=== PATIENT | female | born 1945 | race Caucasian/White ===

== ENCOUNTER 2016-11-06 15:46 | Emergency (ER) | payer MEDICARE, BC ==
[2016-11-06] MEDS ORDERED: SODIUM CHLORIDE 0.9% 500 ML IV ONE (17:52)
[2016-11-06] MEDS ORDERED: DILTIAZEM 50 MG/10 ML VIAL IV ONE (17:52)
== END 2016-11-06 19:27 | disposition home or self-care (01) ==
LOC: ER 15:46
DX: I48.0 Paroxysmal atrial fibrillation (principal); I49.9 Cardiac arrhythmia, unspecified; E03.9 Hypothyroidism, unspecified; I10 Essential (primary) hypertension; Z79.01 Long term (current) use of anticoagulants; Z79.899 Other long term (current) drug therapy
CPT/HCPCS: 36415; 71010; 80048; 82550; 82553; 84439; 84443; 84484; 85025; 85610; 85730; 93005; 96361; 96374; 99285; J7040